=== PATIENT | male | born 1975 | race Caucasian/White ===

== ENCOUNTER 2021-10-07 07:33 | Day surgery (SDC) | payer BC ==
[2021-10-05 16:01] VITALS: BMI 35.2
[2021-10-07] MEDS ORDERED: XYLOCAINE 2%-EPI 1:100,000 20 ML VIAL ONE (10:23)
[2021-10-07] MEDS ORDERED: EPINEPHrine 1 MG/ML AMP ONE (10:23)
[2021-10-07] MEDS ORDERED: Fentanyl 100 MCG/2 ML VIAL ONE (10:32)
[2021-10-07] MEDS ORDERED: Dexmedetomidine 200 MCG/2 ML VIAL ONE (10:32)
[2021-10-07] MEDS ORDERED: Midazolam HCl 2 mg/2 ml Vial ONE (10:32)
[2021-10-07] MEDS ORDERED: PROPOFOL 200 MG/20 ML VIAL ONE (10:36)
[2021-10-07] MEDS ORDERED: Dexamethasone 20 MG/5 ML VIAL ONE (10:36)
[2021-10-07] MEDS ORDERED: Ondansetron PF 4 MG/2 ML Vial ONE (10:36)
[2021-10-07] MEDS ORDERED: Succinylcholine 200 MG/10 ml SYRINGE FS ONE (10:36)
[2021-10-07] MEDS ORDERED: Lidocaine 1% PF 5 ML VIAL ONE (10:36)
[2021-10-07] MEDS ORDERED: PROPOFOL 40 ML ONE (10:47)
== END 2021-10-07 12:54 | disposition home or self-care (01) ==
LOC: SDC 07:33
PROVIDERS: ATTEND Otolaryngology Plastic Surgery within the Head & Neck
PROC: 3E0F8GC Introduction of Other Therapeutic Substance into Respiratory Tract, Via Natural or Artificial Opening Endoscopic (ICD-10-PCS; principal; 2021-10-07)
DX: J38.01 Paralysis of vocal cords and larynx, unilateral (principal); I10 Essential (primary) hypertension; E66.9 Obesity, unspecified; Z68.35 Body mass index [BMI] 35.0-35.9, adult; Z79.899 Other long term (current) drug therapy; Z87.891 Personal history of nicotine dependence
CPT/HCPCS: 93005; 93010; C1776; J0171; J1100; J2250; J2405; J2704; J3010